=== PATIENT | male | born 1940 | race Caucasian/White ===

== ENCOUNTER 2019-09-27 07:44 | Day surgery (SDC) | payer MEDICARE ==
[~2019-09-27] VITALS: Ht 175.3 cm; Wt 112.0 kg
[2019-09-27] VITALS (7 sets, daily range): BP systolic 106–132; BP diastolic 62–78; PULSE 54–93; TEMP 97.6–98.2
[2019-09-27] MEDS ORDERED: ZYLOPRIM 300MG300 MG PO (08:33)
[2019-09-27] MEDS ORDERED: CELEBREX 1100 MG/CAP PO (08:33)
[2019-09-27] MEDS ORDERED: FLEXERIL5 MG PO (08:34)
[2019-09-27] MEDS ORDERED: FISH OIL 1000MG1 CAP PO (08:35)
[2019-09-27] MEDS ORDERED: LASIX 20MG TABL20 MG PO (08:36)
[2019-09-27] MEDS ORDERED: PRINZIDE 12.5 M1 TA1 PO (08:36)
[2019-09-27] MEDS ORDERED: FLOMAX 0.40.4 MG/CAP PO (08:38)
[2019-09-27] MEDS ORDERED: LOPRESSOR 225 MG/TAB PO (08:38)
[2019-09-27] MEDS ORDERED: VITAMIN D 400400 IU PO (08:40)
[2019-09-27] MEDS ORDERED: VITAMIN A10k PO (08:41)
[2019-09-27] MEDS ORDERED: ASPIRIN 32325 MG/TAB PO (08:42)
[2019-09-27] MEDS ORDERED: VITAMIN A & D PO (08:45)
--- NOTE | 2019-09-27 08:47 | NUR ---
TO RM AT 0754- CALL LIGHT IN REACH AT BEDSIDE.
--- NOTE | 2019-09-27 11:30 | NUR ---
RECEIVED 2ND CUP OF WATER
--- NOTE | 2019-09-27 11:50 | NUR ---
TO RM 2 PER CART FROM PACU. ALERT ORIENTED X3, TALKING TO STAFF AND . VARGAS CATH PATENT WITH LIGHT YELLOW URINE. DENIES PAIN OR DISCOMFORT. DENIES NAUSEA OR VOMITING. DR YU STATED TO CLAMP VARGAS . GIVE A 200CC BOLUS OF FLUIDS WHICH ARE HANGING (LR) AND THEN PULL VARGAS. PATIENT WILL NEED TO VOID PRIOR TO LEAVING. RECEIVED CUP OF WATER.
--- NOTE | 2019-09-27 12:00 | NUR ---
DISCONTINUED VARGAS BAG. PATIENT AMBULATED TO BATHROOM VOIDED AND AMBULATED BACK TO BED DISCONTINUED IV AND INT- CATHETER INTACT.
--- NOTE | 2019-09-27 12:20 | NUR ---
RECEIVED DISCHARGE INSTRUCTIONS AND VERBALIZED UNDERSTANDING. INSTRUCTED PATIENT TO CALL OFFICE OR GOT TO THE ER IF UNABLE TO VOID.
--- NOTE | 2019-09-27 12:30 | NUR ---
DISCHARGED PER WC BY NURSING STAFF TO PRIVATE CAR IN CARE OF [facility].
== END 2019-09-27 12:35 | disposition home or self-care (01) ==
LOC: SDCO 07:44
DX: N32.0 Bladder-neck obstruction (principal); I48.91 Unspecified atrial fibrillation; F32.9 Major depressive disorder, single episode, unspecified; M10.9 Gout, unspecified; I10 Essential (primary) hypertension; M19.90 Unspecified osteoarthritis, unspecified site; Z85.46 Personal history of malignant neoplasm of prostate; Z87.11 Personal history of peptic ulcer disease; Z82.49 Family history of ischemic heart disease and other diseases of the circulatory system
CPT/HCPCS: J0690; J1100; J2405; J2704; J3010; J3301; J7120

== ENCOUNTER 2022-04-05 09:14 | Inpatient (IN) | payer MEDICARE ==
[~2022-04-05] VITALS: Ht 175.3 cm; Wt 104.6 kg
[2022-04-05] VITALS (348 sets, daily range): BP systolic 102–131; BP diastolic 55–91; PULSE 73–91; TEMP 97.6–98.5; O2SAT 70–100
[~2022-04-05 09:14] MED LIST: ASPIRIN 32325 MG/TAB PO; CELEBREX 1100 MG/CAP PO; FISH OIL 1000MG1 CAP PO; FLEXERIL5 MG PO; FLOMAX 0.40.4 MG/CAP PO; LASIX 20MG TABL20 MG PO; LOPRESSOR 225 MG/TAB PO; PRINZIDE 12.5 M1 TA1 PO; VITAMIN A & D PO; VITAMIN A10k PO; VITAMIN D 400400 IU PO; ZYLOPRIM 300MG300 MG PO
[2022-04-05 10:12] LABS: BASO # 0.1 K/mm3 (0.0-0.2); BASO % 0.7 % (0.0-2.0); EOS # 0.1 K/mm3 (0.0-0.7); EOS % 0.9 % (0.0-4.0); GRAN # 4.9 K/mm3 (1.4-6.5); GRAN % 64.2 % (42.2-75.2); HEMATOCRIT 49.5 % (42.0-52.0); HEMOGLOBIN 17.2 g/dl (13.5-18.0); LYMPH # 1.9 K/mm3 (1.2-3.4); LYMPH % 24.5 % (20.0-51.0); MEAN CELL VOLUME 88 fl (80.0-100.0); MEAN CORPUSCULAR HEMOGLOBIN 31 pg (27-31); MEAN CORPUSCULAR HGB CONC 35 g/dl (33.0-37.0); MEAN PLATELET VOLUME 10.4 fl (7.4-10.4); MONO # 0.7 K/mm3 (0.1-0.6); PLATELET COUNT 271 K/mm3 (130-400); RED BLOOD COUNT 5.61 M/mm3 (4.20-5.60); REDCELL DISTRIBUTION WIDTH-CV 13.4 % (11.5-14.5)
[2022-04-05 10:33] LABS: ALBUMIN 3.8 gm/dL (3.4-4.8); BILIRUBIN,TOTAL 0.9 mg/dL (0.2-1.2); CALCIUM 9.5 mg/dL (8.4-10.2); CREATININE, serum 1.06 mg/dL (0.72-1.25); POTASSIUM 3.4 mmol/L (3.5-4.5); TOTAL PROTEIN 7.6 gm/dL (6.2-8.1)
[2022-04-05 11:11] LABS: INR 1.1 (0.8-3.0); PROTHROMBIN TIME 12.1 SECONDS (9.7-12.8)
[2022-04-05 11:14] LABS: PARTIAL THROMBOPLASTIN TIME 28.5 SECONDS (26.0-37.0)
[2022-04-05] MEDS ORDERED: PAXLOVID CO-PA1 EACH PO (12:45)
[2022-04-05 12:54] LABS: COLLECTION METHOD CLEAN CATCH
[2022-04-05 13:03] LABS: MUCOUS Present (NOT PRESENT); PH 7 (5-8); SQUAMOUS EPITHELIAL 0-2 /hpf (0-10); URINE APPEARANCE Clear (CLEAR/HAZY); URINE BACTERIA None Seen /hpf (NONE SEEN); URINE BLOOD 1+ (NEGATIVE); URINE COLOR Yellow (YELLOW); URINE GLUCOSE Negative (NEGATIVE); URINE KETONE Negative (NEGATIVE); URINE NITRATE Negative (NEGATIVE); URINE PROTEIN(semi-quant) Negative (NEGATIVE); URINE RBC 0-2 /hpf (0-2); URINE UROBILINOGEN Negative (NEGATIVE)
--- NOTE | 2022-04-05 14:50 | NUR ---
PT TRANSFERRED TO ICU FROM ED. PT ABLE TO TRANSFER FROM ED COT TO ICU BED. PT ASSESSMENT COMPLETED. VSS. HEPARIN DRIP VERIFIED. PT PLACED ON ICU MONITORING. PT EDUCATED ON HOW TO USE CALL LIGHT. PT VERBALIZED UNDERSTANDING. CALL LIGHT WITHIN REACH.
[2022-04-05] MEDS ORDERED: FLEXERIL5 MG PO (22:55)
[2022-04-06 04:04] VITALS: BP 128/59; PULSE 80; TEMP 98.4
[2022-04-06 04:07] LABS: BASO % 0.3 % (0.0-2.0); EOS # 0.1 K/mm3 (0.0-0.7); EOS % 1.4 % (0.0-4.0); GRAN # 3.3 K/mm3 (1.4-6.5); GRAN % 50.2 % (42.2-75.2); HEMATOCRIT 43.2 % (42.0-52.0); LYMPH # 2.4 K/mm3 (1.2-3.4); MEAN CELL VOLUME 90 fl (80.0-100.0); MEAN CORPUSCULAR HEMOGLOBIN 30 pg (27-31); MEAN CORPUSCULAR HGB CONC 34 g/dl (33.0-37.0); MEAN PLATELET VOLUME 10.9 fl (7.4-10.4); MONO # 0.8 K/mm3 (0.1-0.6); MONO % 11.5 % (1.7-9.3); PLATELET COUNT 219 K/mm3 (130-400); REDCELL DISTRIBUTION WIDTH-CV 13.4 % (11.5-14.5)
[2022-04-06 04:17] LABS: HEMOGLOBIN 14.6 g/dl (13.5-18.0)
[2022-04-06 04:24] LABS: CALCIUM 8.1 mg/dL (8.4-10.2); CREATININE, serum 0.79 mg/dL (0.72-1.25); MAGNESIUM 1.6 mg/dL (1.6-2.6); PHOSPHOROUS 2.5 mg/dL (2.3-4.7); POTASSIUM 3.7 mmol/L (3.5-4.5)
--- NOTE | 2022-04-06 04:50 | NUR ---
HEPXA OF 0.97, HEPARIN GTT STOPPED X1 HOUR PER PROTOCOL AND THEN WILL BE AT A DECREASED RATE. SEE MAR.
--- NOTE | 2022-04-06 09:09 | NUR ---
The patient is COVID positive. SW contacted the patient's , Vale (ph#[phone]), to discuss discharge plan. The patient lives in [place] with his . Vale reports that the patient is indepedent with ADLs and has a cane and walker available, if needed. The patient's PCP is Dr. Antonio Olivares and he receives his medications from [facility]. Vale states that the patient does not have a DPOA-HC. His legal next of kin is his . Vale reports that the plan is for the patient to return back home with her upon discharge. No additional needs at this time. *Discharge plan: home with *
--- NOTE | 2022-04-06 09:34 | NUR ---
Patient alert and oriented, no complaints of pain. Heparin gtt running at 14 units/hr. Recheck HepXa at 0900. Patient 1 Assist to bathroom. +1 edema in bilateral lower extremities. Lungs clear. Call light in reach. Potassium at 3.7, will replace today.
[2022-04-06] MEDS ORDERED: DOXYCYCLINE 10100 MG PO (11:53)
[2022-04-06] MEDS ORDERED: TOPROL XL 25MG25 MG PO (11:54)
[2022-04-06] MEDS ORDERED: ASPIRIN E.C. 8181 MG PO (11:55)
[2022-04-06] MEDS ORDERED: ELIQUIS 5MG PO (11:56)
[2022-04-06 12:53] VITALS: BP 130/86; PULSE 95
--- NOTE | 2022-04-06 14:42 | NUR ---
Patient IV discontinued and removed. Tele removed. Patient chose to level electrodes on until showering at home for ease of removal on hair. Patient dressed self. Discharge instructions given with verbal understanding repeated. Patient wheeled down to ER dropoff. Instructions given to patient as well.
== END 2022-04-06 14:20 | disposition home or self-care (01) | DRG 177 ==
LOC: COL.ER 09:14 → MEDICAL 11:44 → ICU 11:44 → MEDICAL 22:20
PROVIDERS: Family Medicine; ADMIT Internal Medicine
DX: U07.1 COVID-19 (principal); J12.82 Pneumonia due to coronavirus disease 2019; I48.20 Chronic atrial fibrillation, unspecified; N17.9 Acute kidney failure, unspecified; I10 Essential (primary) hypertension; M54.9 Dorsalgia, unspecified; I95.9 Hypotension, unspecified; I27.20 Pulmonary hypertension, unspecified; M10.9 Gout, unspecified; K27.9 Peptic ulcer, site unspecified, unspecified as acute or chronic, without hemorrhage or perforation; M19.90 Unspecified osteoarthritis, unspecified site; E87.6 Hypokalemia; N40.0 Benign prostatic hyperplasia without lower urinary tract symptoms; E86.0 Dehydration; Z79.82 Long term (current) use of aspirin; Z85.46 Personal history of malignant neoplasm of prostate; Z72.89 Other problems related to lifestyle; Z23 Encounter for immunization
CPT/HCPCS: J0696; J1644; J3475; J7030; Q9967

== ENCOUNTER 2022-04-20 17:36 | Inpatient (IN) | payer MEDICARE ==
[~2022-04-20] VITALS: Ht 175.3 cm; Wt 100.2 kg
[~2022-04-20 17:36] MED LIST changes: +ASPIRIN E.C. 8181 MG PO; +DOXYCYCLINE 10100 MG PO; +ELIQUIS 5MG PO; +PAXLOVID CO-PA1 EACH PO; +TOPROL XL 25MG25 MG PO
[2022-04-20 18:29] LABS: BASO # 0.1 K/mm3 (0.0-0.2); BASO % 0.4 % (0.0-2.0); EOS # 0.1 K/mm3 (0.0-0.7); EOS % 0.4 % (0.0-4.0); GRAN # 18.9 K/mm3 (1.4-6.5); GRAN % 86.9 % (42.2-75.2); HEMATOCRIT 46.3 % (42.0-52.0); HEMOGLOBIN 15.4 g/dl (13.5-18.0); LYMPH # 1.7 K/mm3 (1.2-3.4); LYMPH % 7.7 % (20.0-51.0); MEAN CELL VOLUME 91 fl (80.0-100.0); MEAN CORPUSCULAR HEMOGLOBIN 30 pg (27-31); MEAN CORPUSCULAR HGB CONC 33 g/dl (33.0-37.0); MEAN PLATELET VOLUME 10.3 fl (7.4-10.4); MONO # 0.9 K/mm3 (0.1-0.6); MONO % 4.2 % (1.7-9.3); PLATELET COUNT 298 K/mm3 (130-400); REDCELL DISTRIBUTION WIDTH-CV 13.3 % (11.5-14.5)
[2022-04-20 18:41] LABS: ALBUMIN 3.6 gm/dL (3.4-4.8); BILIRUBIN,TOTAL 1.3 mg/dL (0.2-1.2); CALCIUM 9.3 mg/dL (8.4-10.2); CREATININE, serum 0.98 mg/dL (0.72-1.25); POTASSIUM 4.1 mmol/L (3.5-4.5); TOTAL PROTEIN 7.4 gm/dL (6.2-8.1)
[2022-04-20 18:47] LABS: TROPONIN-I 0.026 ng/mL (0.00-0.033)
[2022-04-20] MEDS ORDERED: relief factor PO (21:18)
[2022-04-20] MEDS ORDERED: TOPROL XL 25MG25 MG PO (21:20)
[2022-04-20] MEDS ORDERED: LASIX 20MG TABL20 MG PO (21:22)
[2022-04-20 22:52] LABS: INR 1.4 (0.8-3.0); PROTHROMBIN TIME 16.2 SECONDS (9.7-12.8)
[2022-04-20 22:55] LABS: PARTIAL THROMBOPLASTIN TIME 33.7 SECONDS (26.0-37.0)
[2022-04-20 23:40] VITALS: BP 116/76; PULSE 112; TEMP 97.8
[2022-04-21 04:51] VITALS: BP 121/94; PULSE 76; TEMP 98
[2022-04-21 07:16] VITALS: BP 120/84; PULSE 89; TEMP 97.7
[2022-04-21 07:41] LABS: BASO # 0.1 K/mm3 (0.0-0.2); BASO % 0.5 % (0.0-2.0); EOS # 0.1 K/mm3 (0.0-0.7); EOS % 1.1 % (0.0-4.0); HEMATOCRIT 41.9 % (42.0-52.0); HEMOGLOBIN 13.8 g/dl (13.5-18.0); LYMPH % 20.4 % (20.0-51.0); MEAN CELL VOLUME 91 fl (80.0-100.0); MEAN CORPUSCULAR HEMOGLOBIN 30 pg (27-31); MEAN CORPUSCULAR HGB CONC 33 g/dl (33.0-37.0); MEAN PLATELET VOLUME 10.5 fl (7.4-10.4); MONO # 0.7 K/mm3 (0.1-0.6); MONO % 6.7 % (1.7-9.3); PLATELET COUNT 248 K/mm3 (130-400); RED BLOOD COUNT 4.63 M/mm3 (4.20-5.60); REDCELL DISTRIBUTION WIDTH-CV 13.6 % (11.5-14.5)
--- NOTE | 2022-04-21 07:41 | NUR ---
Patient alert and oriented, no complaints of pain. 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 Heparin gtt at 19.5ml/hr in the R forearm. Zosyn at 25ml/hr in R AC. Patient resting in bed comfortably.
[2022-04-21 07:57] LABS: CALCIUM 8.8 mg/dL (8.4-10.2); CREATININE, serum 0.91 mg/dL (0.72-1.25)
[2022-04-21 08:07] LABS: TROPONIN-I 0.06 ng/mL (0.00-0.033)
--- NOTE | 2022-04-21 10:31 | NUR ---
Initial visit; Patient thanked Pediatric Urologist for offering prayer and God's blessings. Pediatric Urologist will keep patient in her prayers.
[2022-04-21 11:28] VITALS: BP 135/89; PULSE 103; TEMP 97.9
[2022-04-21 16:08] VITALS: BP 115/82; PULSE 69; TEMP 97.4
--- NOTE | 2022-04-21 16:56 | NUR ---
Patient has been resting comfortably in room for the day. Independent at bedside for urinal use., Strict I&O monitoring in place. Heparin gtt running, recheck at 1700. No complaints of pain. No complaints of difficulty breathing or shortness of breath. Patient has had uneventful day, NPO at midnight for stress test tomorrow with interventions planned tomorrow based off of stress test results.
[2022-04-21 19:35] VITALS: BP 105/83; PULSE 100; TEMP 98.7
--- NOTE | 2022-04-21 21:03 | NUR ---
Patient assessed around 193. Denies having pain and discomfort. Restarted Heparin drip at 1915 per ordres. Recheck PTT at 0115. Telemetry in place: A-fib. Denies having any questions, needs, or concerns at this time. Patient aware of plan for lexiscan tomorrow. In bed with call light within reach.
[2022-04-21 23:26] VITALS: BP 94/76; PULSE 75; TEMP 97.9
[2022-04-22] VITALS (13 sets, daily range): BP systolic 90–138; BP diastolic 47–88; PULSE 68–100; TEMP 97.5–98.8
--- NOTE | 2022-04-22 05:45 | NUR ---
Patient continues on Heparin drip per orders. Recheck PTT at 0750 per protocol. Denies having pain and discomfort at this shift. Did not give Nitro paste during the night due to low BP and denies having chest pain and discomfort. In bed with call light within reach. Remains in A-fib on telemetry. Has been NPO since midnight for [employer] today.
[2022-04-22 08:07] LABS: BASO # 0.1 K/mm3 (0.0-0.2); BASO % 0.7 % (0.0-2.0); EOS # 0.2 K/mm3 (0.0-0.7); EOS % 2.9 % (0.0-4.0); GRAN # 4.2 K/mm3 (1.4-6.5); GRAN % 56.7 % (42.2-75.2); HEMATOCRIT 43.1 % (42.0-52.0); HEMOGLOBIN 14.5 g/dl (13.5-18.0); LYMPH # 2.2 K/mm3 (1.2-3.4); MEAN CELL VOLUME 90 fl (80.0-100.0); MEAN CORPUSCULAR HEMOGLOBIN 30 pg (27-31); MEAN CORPUSCULAR HGB CONC 34 g/dl (33.0-37.0); MEAN PLATELET VOLUME 10.3 fl (7.4-10.4); MONO # 0.7 K/mm3 (0.1-0.6); MONO % 9.3 % (1.7-9.3); PLATELET COUNT 248 K/mm3 (130-400); RED BLOOD COUNT 4.77 M/mm3 (4.20-5.60); REDCELL DISTRIBUTION WIDTH-CV 13.6 % (11.5-14.5)
[2022-04-22 08:20] LABS: CREATININE, serum 0.89 mg/dL (0.72-1.25); MAGNESIUM 1.9 mg/dL (1.6-2.6); POTASSIUM 3.6 mmol/L (3.5-4.5)
--- NOTE | 2022-04-22 16:11 | NUR ---
SW met with patient to complete intake and discuss discharge plan. Patient reports that he lives at home with his Janine ([phone]). Patient reports that he is mostly independent with his ADL's but that his does help at times. He does not utilize any DME to assist with mobility. Patient has no home oxygen needs. PCP is and he utilizes [facility] for prescriptions. Patient is planning on returning home once medically ready. Discharge plan: Home
--- NOTE | 2022-04-22 18:00 | NUR ---
Patient had an ok day. Shift assessment completed. Scheduled medications given. VSS. Patient A&O. LINDSEY and Cardioversion completed. Post op vitals completed. Patient denies any pain, discomfort, or further needs at this time. Call light in reach.
--- NOTE | 2022-04-22 19:22 | NUR ---
TX GIVEN VIA MOUTHPIECE, TOLERATED WELL.
--- NOTE | 2022-04-22 19:35 | NUR ---
PATIENT RESTING IN BED WATCHING TELEVISION AT THIS TIME. PATIENT JOSE NEEDS OR CONCERNS AT THIS TIME. CALL LIGHT IS WITHIN PATIENT REACH AND PATIENT ENCOURAGED TO CALL WITH ANY NEEDS OR CONCERNS. PATIENT EXPRESSES APPRECIATION FOR VISIT.
[2022-04-23] VITALS (7 sets, daily range): BP systolic 116–151; BP diastolic 59–79; PULSE 54–62; TEMP 97.3–98.4
--- NOTE | 2022-04-23 05:51 | NUR ---
Patient has had an uneventful night and has remained sinus bernabe on tele. Patient is in bed with eyes closed. Patient has no signs or symptoms of any issues or concerns. Call light is within reach of patient.
[2022-04-23 06:08] LABS: BASO % 0.6 % (0.0-2.0); EOS # 0.3 K/mm3 (0.0-0.7); EOS % 3.5 % (0.0-4.0); GRAN % 56.9 % (42.2-75.2); HEMATOCRIT 40.2 % (42.0-52.0); HEMOGLOBIN 13.4 g/dl (13.5-18.0); MEAN CELL VOLUME 91 fl (80.0-100.0); MEAN CORPUSCULAR HEMOGLOBIN 30 pg (27-31); MEAN CORPUSCULAR HGB CONC 33 g/dl (33.0-37.0); MEAN PLATELET VOLUME 10.8 fl (7.4-10.4); MONO # 0.8 K/mm3 (0.1-0.6); MONO % 10.7 % (1.7-9.3); PLATELET COUNT 235 K/mm3 (130-400); RED BLOOD COUNT 4.42 M/mm3 (4.20-5.60); REDCELL DISTRIBUTION WIDTH-CV 13.6 % (11.5-14.5)
[2022-04-23 06:27] LABS: CREATININE, serum 0.89 mg/dL (0.72-1.25); POTASSIUM 3.4 mmol/L (3.5-4.5)
--- NOTE | 2022-04-23 08:00 | NUR ---
Pt lying down in bed. VSS. A&O x4. Shift assessment completed. Complains of Headache, unable to describe and rate level of pain. Requests for medication. Provider notified. Tele on. Right INT forearm CDI. Right INT Antecubital CDI. No redness or edema. Denies any other disconfort or needs at the time besides Headache. Call light within reach.
--- NOTE | 2022-04-23 08:56 | NUR ---
IV medications given as ordered. Education on new initiation of magnesium replacement. All questions answered. Patient verbalized an understanding of the teaching.
--- NOTE | 2022-04-23 18:47 | NUR ---
Pt lying down in bed denies any needs or concerns at the time. He states that his Headache decreased a lot since this morning. Call light within reach.
--- NOTE | 2022-04-23 19:17 | NUR ---
PATIENT SITTING AT BEDSIDE IN RECLINER WITH FLUIDS INFUSING BY GRAVITY. FAMILY IS AT BEDSIDE. PATIENT INFORMS THIS NURSE OF DYE ALLERGIES. WILL DISCUSS WITH PHARMACY IF PT OWN MEDS CAN BE LABELED AND USED SINCE PT MEDS ARE SPECIAL ORDERED. PATIENT STATES AGREEMENT WITH PLAN. PATIENT JOSE PAIN, NEEDS OR CONCERNS. PATIENT HAS CALL LIGHT WITHIN REACH AND ENCOURAGED TO CALL WITH ANY NEEDS OR CONCERNS.
--- NOTE | 2022-04-23 19:21 | NUR ---
1830 PATIENT LAYING IN BED STATES HE HAS LOW ENERGY TODAY. PATIENT STATES HE ATE HIS DINNER AND IT WAS GOOD. PATIENT DENIES NEEDS OR CONCERNS AT THIS TIME BUT DOES STATE HE WOULD LIKE TO GO TO BE EARLY TONIGHT. THIS NURSE ADVISES SHE WILL BRING PATIENT MEDS SO HE MAY FALL ASLEEP WHEN DESIRED. CALL LIGHT IS WITHIN REACH OF PATIENT AND PATIENT ENCOURAGED TO CALL WITH ANY NEEDS OR CONCERNS.
--- NOTE | 2022-04-23 20:31 | NUR ---
Pt not available, he asked me to come back in a little while.
--- NOTE | 2022-04-23 20:52 | NUR ---
Tx given via mouthpiece, tolerated well.
[2022-04-24 04:18] VITALS: BP 136/70; PULSE 61; TEMP 98.5
--- NOTE | 2022-04-24 05:34 | NUR ---
PATIENT STATES HE HAS NOT SLEPT ALL NIGHT DUE TO ISSUES WITH TELE AND THIS NURSE HAVING TO COME CHECK WITH ISSUES. PATIENT REQUESTS AND RECEIVES TYLENOL FOR PAIN THAT HE RATES 4/10 IN HIS HEAD. PATIENT STATES THIS NURSE IS TOO MUCH LIKE HIS AND MUST LOVE PAYING THE ELECTRIC BILL AROUND HERE. PATIENT EDITA ANY ADDITIONAL NEEDS AT THIS TIME. PATIENT HAS CALL LIGHT WITHIN REACH AND IS ENCOURAGED TO CALL WITH ANY NEEDS OR CONCERNS. LAB COMES IN PATIENT ROOM NURSE IS LEAVING FOR MORNING BLOOD DRAW.
--- NOTE | 2022-04-24 06:50 | NUR ---
appears to be sleeping, bedside shift report received monika Martinez RN
[2022-04-24 06:52] LABS: CALCIUM 8.8 mg/dL (8.4-10.2); CREATININE, serum 0.95 mg/dL (0.72-1.25); POTASSIUM 3.5 mmol/L (3.5-4.5)
--- NOTE | 2022-04-24 07:45 | NUR ---
appears to be dozing, awakened and full assessment completed, see interventions for further info, c/o some left shoulder discomfort, denies needs, breakfast ordered
[2022-04-24 08:10] VITALS: BP 127/64; PULSE 67; TEMP 97.5
--- NOTE | 2022-04-24 09:25 | NUR ---
Dr Alejo in to see patient
--- NOTE | 2022-04-24 11:05 | NUR ---
in bed and appears to be dozing, eyes closed, resp quiet and easy
[2022-04-24] MEDS ORDERED: LASIX 40MG TABL40 MG PO (11:08)
[2022-04-24] MEDS ORDERED: K-DUR20 MEQ PO (11:09)
[2022-04-24] MEDS ORDERED: BETAPACE 120MG120 MG PO (11:10)
[2022-04-24 11:44] VITALS: BP 111/63; PULSE 51; TEMP 97.9
--- NOTE | 2022-04-24 12:49 | NUR ---
assisted to sitting up on side of bed to have lunch
--- NOTE | 2022-04-24 13:20 | NUR ---
Dr Carbajal in to see patient
--- NOTE | 2022-04-24 13:30 | NUR ---
assisted up and into shower,
--- NOTE | 2022-04-24 14:00 | NUR ---
discharge instructions given to patient and his , verbalizes understanding
--- NOTE | 2022-04-24 14:06 | NUR ---
discharged per WC
== END 2022-04-24 14:06 | disposition home or self-care (01) | DRG 280 ==
LOC: COL.ER 17:36 → MEDICAL 20:19
PROVIDERS: Internal Medicine; Nurse Practitioner Family; Physician Assistant; ADMIT Internal Medicine
PROC: 5A2204Z Restoration of Cardiac Rhythm, Single (ICD-10-PCS; principal; 2022-04-22)
PROC: B24BZZ4 Ultrasonography of Heart with Aorta, Transesophageal (ICD-10-PCS; 2022-04-22)
DX: I48.91 Unspecified atrial fibrillation (principal); I50.33 Acute on chronic diastolic (congestive) heart failure; I21.4 Non-ST elevation (NSTEMI) myocardial infarction; J18.9 Pneumonia, unspecified organism; R65.10 Systemic inflammatory response syndrome (SIRS) of non-infectious origin without acute organ dysfunction; J81.1 Chronic pulmonary edema; I95.9 Hypotension, unspecified; I11.0 Hypertensive heart disease with heart failure; M10.9 Gout, unspecified; E87.6 Hypokalemia; K27.9 Peptic ulcer, site unspecified, unspecified as acute or chronic, without hemorrhage or perforation; I34.0 Nonrheumatic mitral (valve) insufficiency; M19.90 Unspecified osteoarthritis, unspecified site; D72.829 Elevated white blood cell count, unspecified; G89.29 Other chronic pain; M54.9 Dorsalgia, unspecified; Z79.01 Long term (current) use of anticoagulants; Z79.82 Long term (current) use of aspirin; Z85.46 Personal history of malignant neoplasm of prostate; Z86.16 Personal history of COVID-19
CPT/HCPCS: A9500; J0456; J0696; J1644; J1940; J2543; J2704; J2785; J3475; J7050; Q9967

== ENCOUNTER 2023-01-11 16:28 | Emergency (ER) | payer MEDICARE ==
[~2023-01-11] VITALS: Ht 172.7 cm; Wt 109.1 kg
[~2023-01-11 16:28] MED LIST changes: +BETAPACE 120MG120 MG PO; +K-DUR20 MEQ PO; +LASIX 40MG TABL40 MG PO; +relief factor PO
[2023-01-11 16:33] VITALS: TEMP 97.8
[2023-01-11 16:56] LABS: COLLECTION METHOD CLEAN CATCH
[2023-01-11 17:16] LABS: BASO # 0.1 K/mm3 (0.0-0.2); BASO % 0.6 % (0.0-2.0); EOS # 0.2 K/mm3 (0.0-0.7); EOS % 1.9 % (0.0-4.0); GRAN # 5.3 K/mm3 (1.4-6.5); GRAN % 60.5 % (42.2-75.2); HEMATOCRIT 50.4 % (42.0-52.0); HEMOGLOBIN 16.9 g/dl (13.5-18.0); LYMPH # 2.4 K/mm3 (1.2-3.4); MEAN CELL VOLUME 92 fl (80.0-100.0); MEAN CORPUSCULAR HEMOGLOBIN 31 pg (27-31); MEAN CORPUSCULAR HGB CONC 34 g/dl (33.0-37.0); MONO # 0.9 K/mm3 (0.1-0.6); MONO % 9.7 % (1.7-9.3); PLATELET COUNT 203 K/mm3 (130-400); RED BLOOD COUNT 5.49 M/mm3 (4.20-5.60); REDCELL DISTRIBUTION WIDTH-CV 13.6 % (11.5-14.5)
[2023-01-11 17:20] LABS: URINE APPEARANCE Cloudy (CLEAR/HAZY); URINE BLOOD 2+ (NEGATIVE); URINE COLOR Red (YELLOW); URINE GLUCOSE Negative (NEGATIVE); URINE KETONE Negative (NEGATIVE); URINE NITRATE Negative (NEGATIVE); URINE PROTEIN(semi-quant) 2+ (NEGATIVE)
[2023-01-11 17:24] LABS: SQUAMOUS EPITHELIAL None Seen /hpf (0-10); URINE BACTERIA Moderate /hpf (NONE SEEN); URINE RBC >50 /hpf (0-2)
[2023-01-11 17:24] LABS: INR 1.2 (0.8-3.0); PROTHROMBIN TIME 13.3 SECONDS (9.7-12.8)
[2023-01-11 17:48] LABS: BILIRUBIN,TOTAL 0.8 mg/dL (0.2-1.2); C-REACTIVE PROTEIN 0.08 mg/dL (0.00-0.50); CALCIUM 9.2 mg/dL (8.4-10.2); CREATININE, serum 0.98 mg/dL (0.72-1.25); POTASSIUM 4.3 mmol/L (3.5-4.5); TOTAL PROTEIN 7.6 gm/dL (6.2-8.1)
[2023-01-11] MEDS ORDERED: CEFTIN500 MG PO (20:16)
[2023-01-11 20:26] VITALS: BP 101/74; PULSE 60
== END 2023-01-11 20:26 | disposition home or self-care (01) ==
LOC: COL.ER 16:28
PROVIDERS: Emergency Medicine
DX: N30.91 Cystitis, unspecified with hematuria (principal); I48.91 Unspecified atrial fibrillation; Z79.01 Long term (current) use of anticoagulants; Z86.16 Personal history of COVID-19
CPT/HCPCS: J0696; J1885; J2405; J7030; Q9967

== ENCOUNTER 2023-09-24 10:00 | Inpatient (IN) | payer MEDICARE ==
[~2023-09-24] VITALS: Ht 22.9 cm; Wt 109.0 kg
[~2023-09-24 10:00] MED LIST changes: +CEFTIN500 MG PO; +CEPHALEXIN500 M1 PO; +COLACE LIQUI10 MG/ML PO; +PYRIDIUM 100MG100 MG PO
[2023-09-24 10:25] LABS: BASO # 0.1 K/mm3 (0.0-0.2); BASO % 0.5 % (0.0-2.0); EOS # 0.1 K/mm3 (0.0-0.7); EOS % 1.2 % (0.0-4.0); GRAN # 7.1 K/mm3 (1.4-6.5); GRAN % 71.9 % (42.2-75.2); HEMATOCRIT 46.1 % (42.0-52.0); HEMOGLOBIN 15.3 g/dl (13.5-18.0); LYMPH # 1.8 K/mm3 (1.2-3.4); LYMPH % 17.8 % (20.0-51.0); MEAN CELL VOLUME 91 fl (80.0-100.0); MEAN CORPUSCULAR HEMOGLOBIN 30 pg (27-31); MEAN CORPUSCULAR HGB CONC 33 g/dl (33.0-37.0); MEAN PLATELET VOLUME 11.3 fl (7.4-10.4); MONO # 0.8 K/mm3 (0.1-0.6); MONO % 8.2 % (1.7-9.3); PLATELET COUNT 202 K/mm3 (130-400); RED BLOOD COUNT 5.08 M/mm3 (4.20-5.60); REDCELL DISTRIBUTION WIDTH-CV 13.9 % (11.5-14.5)
[2023-09-24 10:33] LABS: INR 1.2 (0.8-3.0); PROTHROMBIN TIME 13.6 SECONDS (9.7-12.8)
[2023-09-24 10:36] LABS: PARTIAL THROMBOPLASTIN TIME 32.9 SECONDS (26.0-37.0)
[2023-09-24 10:44] LABS: ALANINE AMINOTRANSFERASE 18 U/L (0-55); ALKALINE PHOSPHATASE 97 U/L (40-150); ANION GAP 13 mmol/L (7-16); AST,SGOT 20 U/L (5-34); BILIRUBIN,TOTAL 0.8 mg/dL (0.2-1.2); BLOOD UREA NITROGEN 17 mg/dL (8-26); CARBON DIOXIDE 23 mmol/L (23-31); CHLORIDE 104 mmol/L (98-107); CREATININE, serum 0.87 mg/dL (0.72-1.25); GLUCOSE 96 mg/dL (70-99); LIPASE < 7 U/L (8-78); POTASSIUM 4.2 mmol/L (3.5-4.5); SODIUM 140 mmol/L (136-145); TOTAL PROTEIN 7.4 gm/dL (6.2-8.1)
[2023-09-24 10:51] LABS: TROPONIN-I 0.042 ng/mL (0.00-0.033)
[2023-09-24] MEDS ORDERED: fentaNYL 50 MCG/ML 2 ML VIAL IV ONE (11:00)
[2023-09-24 11:03] LABS: COLLECTION METHOD CATHETER
[2023-09-24 11:22] LABS: PH 5.5 (5.0-8.5); URINE APPEARANCE Clear (CLEAR/HAZY); URINE BLOOD TRACE-INTACT (NEGATIVE); URINE COLOR Yellow (YELLOW); URINE GLUCOSE Negative (NEGATIVE); URINE KETONE Negative (NEGATIVE); URINE NITRATE Negative (NEGATIVE); URINE PROTEIN(semi-quant) Negative (NEGATIVE); URINE RBC None Seen /hpf (0-2); URINE UROBILINOGEN 0.2 E.U/dL (0.2-1.0)
[2023-09-24] MEDS ORDERED: ELIQUIS 5MG PO (11:48)
[2023-09-24 12:28] VITALS: BP 173/105; PULSE 68; TEMP 97.4
[2023-09-24] MEDS ORDERED: Morphine 4 MG/ML VIAL IV PRN (12:45)
[2023-09-24] MEDS ORDERED: Acetaminophen 500 MG TAB PO SCH (12:45)
[2023-09-24] MEDS ORDERED: oxyCODONE 5 MG TAB PO PRN (12:45)
[2023-09-24] MEDS ORDERED: Cyclobenzaprine 10 MG TAB PO SCH (14:00)
[2023-09-24 15:38] VITALS: BP 147/76; PULSE 62; TEMP 97.9
[2023-09-24 19:08] VITALS: BP_SYST 147
--- NOTE | 2023-09-24 19:30 | NUR ---
Assessment complete. A&Ox4. Denies shortnss of breath/nausea. Rating pain 10/10 on lama scale to back-described as sharp intermittent jabs with a constant ache. States he cant even move in the bed or sit up to eat dinner. Morphine/oxycodone given per dr fields. Tele reporting SR. Currently on O2@1.5L/NC with adequate saturation. Patient refusing gilman cath but states he can use the urinal without difficulty. States he doesnt even feel hungry and just wants to rest. Plan of care discussed for this shift to include meds/pain control/calling for questions/concerns. Verbalizes understanding. Call light in each. Will monitor.
[2023-09-24 19:44] VITALS: BP 167/81; PULSE 68; TEMP 98.2
--- NOTE | 2023-09-24 20:13 | NUR ---
Patient resting eyes closed. NO s/s of pain or discomfort post oxycodone/morphine.
[2023-09-24] MEDS ORDERED: Apixaban 5 MG TAB PO SCH (21:00)
[2023-09-24 22:55] VITALS: BP 150/83; PULSE 53; TEMP 97.8
[2023-09-25] VITALS (13 sets, daily range): BP systolic 116–151; BP diastolic 58–77; PULSE 56–65; TEMP 97.9–98.8
--- NOTE | 2023-09-25 00:30 | NUR ---
Paient resting eyes closed. No s/s of pain or discomfort noted. Will monitor.
--- NOTE | 2023-09-25 02:15 | NUR ---
Patient called c/o muscle spasms to back. Rating pain 6/10 on pain scale. Oxycodone given per dr order. Will monitor.
--- NOTE | 2023-09-25 04:57 | NUR ---
Patient called with c/o pain to back-rating pain 7/10 on pain scale-described as intermittent muscle spasms. Tylenol/morphine given per dr order. Will monitor.
--- NOTE | 2023-09-25 06:17 | NUR ---
Patient rested off an on this shift. Recieved several doses of oxycodone/morphine for back spasms. Flexeril did help the most earlier in shift. Describes pain as intermittent sharp cramps/spasms. VS remained stable with slightly elevated blood pressures. TELE reported SR. On o2@1.5L/NC. IV to right forearm flushed well. Denies current needs. Call light in reach. Will monitor.
--- NOTE | 2023-09-25 06:58 | NUR ---
Bedside report given to DELVIS Vigil.
[2023-09-25 07:18] LABS: CALCIUM 8.7 mg/dL (8.4-10.2); CREATININE, serum 1.04 mg/dL (0.72-1.25); MAGNESIUM 1.9 mg/dL (1.6-2.6); POTASSIUM 4.3 mmol/L (3.5-4.5)
[2023-09-25 07:27] LABS: TROPONIN-I 0.04 ng/mL (0.00-0.033)
--- NOTE | 2023-09-25 07:47 | NUR ---
Critical troponin value called to Dr. Alejo- no new orders rec'd.
[2023-09-25] MEDS ORDERED: Furosemide 80 MG TAB PO SCH (09:00)
[2023-09-25] MEDS ORDERED: Allopurinol 300 MG TAB PO SCH (09:00)
[2023-09-25] MEDS ORDERED: LASIX 40MG TABL40 MG PO (09:04)
[2023-09-25] MEDS ORDERED: K-DUR20 MEQ PO (09:04)
[2023-09-25] MEDS ORDERED: BETAPACE 120MG120 MG PO (09:05)
--- NOTE | 2023-09-25 10:30 | NUR ---
Initial visit; Patient doing well and thanked Squaring Shear Operator for looking in on him and visiting, offering God's blessings and prayer for healing.
--- NOTE | 2023-09-25 14:29 | NUR ---
PATIENT WAS SEEN BY PHYSICAL THERAPY AND SOME BLISTERS WERE SEEN ON THE RIGHT SIDE OF HIS BACK.1 BLISTERED POPPED. PATIENT WAS ASKED IF HE HAD PREVIOUSLY HAD A HEATING PAD AND HE EXPRESSED THAT POSSIBLY HIS HAD PUT ONE ON HIM.
--- NOTE | 2023-09-25 15:19 | NUR ---
lime kiln worker helper met with pt to complete discharge planning. Pt reports he lives in [place] with his , Vale [phone]. Pt reports he sees Dr. Olivares and obtains medications from [facility] or [facility]. He has no issues affording his medications. He does not have a DPOA-HC on file. Pt is independent with ADLS and uses no DME. Pt was provided Medicare.gov list of HH options to discuss with his . Pt said he will discuss with his and decide. Discharge Plan: [facility]
--- NOTE | 2023-09-25 19:20 | NUR ---
Assessment complet. A&Ox4. Denies shortness of breath/nausea. States he still is having muscle spasms to back intermittently. States so far the pain medications given have been helping. Did sit up in bed to eat dinner tonight. TELE reporting SR. Report received that PT noted patient has several small blisters to back-patient states he can not move enough for this nurse to see areas. Will try to reassess later when patient is more comfortable. Currently on RA. VS stable. Using urinal without difficulty. IV to right forearm flushes without difficulty. Plan of care discussed for this shift to include meds/pain control/repositioning/calling for questions/concerns. Verbalizes understanding. Call light in reach. Will monitor.
--- NOTE | 2023-09-25 20:28 | NUR ---
Patient c/o pain to back-described as intermittent muscle spasms-rating pain 10/10. Oxycodone and tylenol given per dr order. Will monitor.
[2023-09-26] VITALS (11 sets, daily range): BP systolic 125–164; BP diastolic 65–84; PULSE 56–69; TEMP 97.6–98
--- NOTE | 2023-09-26 00:21 | NUR ---
Patient resting eyes closed. No s/s of pain noted.
--- NOTE | 2023-09-26 02:47 | NUR ---
Patient called with c/o pain to back pain-rating pain 6/10 on pain scale-described as spasms. Oxycodone given per dr fields.
[2023-09-26 08:31] LABS: BASO % 0.4 % (0.0-2.0); EOS # 0.3 K/mm3 (0.0-0.7); EOS % 3.8 % (0.0-4.0); GRAN # 4.4 K/mm3 (1.4-6.5); GRAN % 62.6 % (42.2-75.2); HEMATOCRIT 43.3 % (42.0-52.0); HEMOGLOBIN 14.2 g/dl (13.5-18.0); LYMPH # 1.6 K/mm3 (1.2-3.4); LYMPH % 22.6 % (20.0-51.0); MEAN CELL VOLUME 92 fl (80.0-100.0); MEAN CORPUSCULAR HEMOGLOBIN 30 pg (27-31); MEAN CORPUSCULAR HGB CONC 33 g/dl (33.0-37.0); MEAN PLATELET VOLUME 11.2 fl (7.4-10.4); MONO # 0.7 K/mm3 (0.1-0.6); MONO % 10.3 % (1.7-9.3); PLATELET COUNT 166 K/mm3 (130-400); RED BLOOD COUNT 4.73 M/mm3 (4.20-5.60)
[2023-09-26 08:43] LABS: CALCIUM 8.6 mg/dL (8.4-10.2); CREATININE, serum 0.9 mg/dL (0.72-1.25); POTASSIUM 3.8 mmol/L (3.5-4.5)
--- NOTE | 2023-09-26 13:36 | NUR ---
community development worker reviewed progress note and spoke with Dr. Alejo regarding discharge plan. felt as though pt needs SNF level of care. IVETTE met with pt and at bedside to discuss change in plans. SW provided Medicare. gov list of SNF locations. SW explained what SNF is and how it is reccomended by and could benefit pt. Patient was unsure and wanting to go home. reports, "Whatever he wants" when asked what her thoughts were. Pt inquired about what kind of beds they have. He reports if they are not hospital grade and cannot move; it would not be an option. SW said she would ask around. SW was given permission to put in Authorization for insurance purposes and pt can change his mind. Family would like to discuss and follow up with IVETTE. IVETTE spoke with [facility] and [facility] who confirm they have hospital grade beds. SW put in SNF authorization with [place] Access portal. Discharge Plan: TBD
--- NOTE | 2023-09-26 16:32 | NUR ---
IVETTE spoke with pt's daughter, Cierra [phone] who had questions regarding discharge planning. She reports her mother, Vale is having a hard time with his pain. IVETTE provided that SNF is the reccomendation and the pt only chose [facility]. She said she will speak with her brother and gather more insight from her family. She was informed pt can discharge tomorrow if accepted and authorization was put into insurance. She verbalized understanding. IVETTE recieved a call from , Vale and provided her with the update that [facility] is still reviewing and has not confirmed if they have beds. IVETTE spoke with [facility] who had further questions regarding medications, cancer treatments, and cancer Dr. IVETTE spoke with RN and Dr. Alejo to get information on this. Discharge Plan: [facility] Pending
--- NOTE | 2023-09-26 20:00 | NUR ---
UPON SHIFT ASSESSMENT, TOBI JOHNSON" WAS UP IN BED EATING DINNER TRAY. HE IS AXO X4 BUT CONTINUES TO COMPLAIN OF BACK PAIN 04/13. ABDOMEN IS QUITE DISTENDED AND FIRM, HOWEVER, HE DENIES PAIN AND BLADDER SCAN REVEAL MINIMAL URINE. I&O OUT PUT FOR 24HRS 1300ML. DALJIT DENIES CHEST PAIN OR SOA. TELE REMAINS NS. CALL LIGHT WITHIN REACH BED ALARM ON.
[2023-09-27] VITALS (7 sets, daily range): BP systolic 126–178; BP diastolic 72–84; PULSE 63–73; TEMP 98.2–98.7
--- NOTE | 2023-09-27 02:35 | NUR ---
CALL PLACED TO THE HOSPITALIST PATIENT'S BACK BLISTERS R/T A HOME HEATING PAD INCIDENT, DRAINING PURLENT FLUID-SCANT. VORB FOR SILVERDENE CREAM GIVEN.
--- NOTE | 2023-09-27 03:00 | NUR ---
ALERTED BY TELE. 8 SECOND WIDE RUN OF V TACH, SO FAR ONLY OCCURENCE. ASSESSED PATIENT-WAS ASLEEP AND AGITATED WHEN I AROUSE HIM. DENIES CHEST PAIN. VS WNL.
--- NOTE | 2023-09-27 03:48 | NUR ---
PER DAYSHIFT INSTRUCTIONS, ADJUSTED COMMODE TO ONE CLICK LOWER.
--- NOTE | 2023-09-27 04:21 | NUR ---
CALL PLACED TO HOSPITALIST, PATIENT'S BP WAS 178/84. ALSO INFORMED HOSPITALIST OF 8SEC RUN VTACH, AND DISTENDED ABDOMEN WITH EPIGASTRIC PAIN. TORB FOR HYDRALAZINE GIVEN.
[2023-09-27] MEDS ORDERED: hydrALAZINE 20 MG/ML 1 ML VIAL IV PRN (04:30)
--- NOTE | 2023-09-27 05:19 | NUR ---
REASSESSED BP -133/77-HYDRALAZINE EFFECTIVE
--- NOTE | 2023-09-27 07:19 | NUR ---
RECIEVED REPORT FROM DELVIS KAYE.
[2023-09-27] MEDS ORDERED: Polyethylene Glycol 3350 17 GM PDS PO SCH (09:00)
[2023-09-27] MEDS ORDERED: Docusate Sodium 100 MG CAP PO SCH (09:00)
[2023-09-27] MEDS ORDERED: Methylnaltrexone 12 MG/0.6 ML VIAL SQ SCH (09:00)
[2023-09-27] MEDS ORDERED: FLEXERIL 1010 MG/TAB PO (11:08)
[2023-09-27] MEDS ORDERED: TYLENOL 500MG500 MG PO (11:08)
[2023-09-27] MEDS ORDERED: COLACE 100100 MG/CAP PO (11:10)
[2023-09-27] MEDS ORDERED: SENNA-LAX8.6 MG PO (11:10)
[2023-09-27] MEDS ORDERED: MIRALAX PA17 GM/Dose PO (11:10)
[2023-09-27] MEDS ORDERED: SILVADENE CREAM1 TU TP (11:11)
[2023-09-27] MEDS ORDERED: ROXICODONE 55 MG/TAB PO (11:12)
[2023-09-27] MEDS ORDERED: LASIX 80MG TABL80 MG PO (11:13)
--- NOTE | 2023-09-27 11:17 | NUR ---
PT ALERT AND ORIENTED X4. IN A LOT OF PAIN RATED 9/10, MEDICATED PER EMAR. SHIFT ASSESSMENT COMPLETE. HAS A HARD TIME WITH REPOSITIONING R/T BACK SPASMS. WHEN ASKED ABOUT HOW HE FELL OR IF HE THINKS THE PAIN IS RELATED TO HIS FALL HE GETS ANGRY AND SAYS HE DOESN'T KNOW. HE ISNT ABLE TO SIT UP WITH OUT EXPERIANCING EXCRUCIATING PAIN. HIS BACK BLISTERS FROM HEATING PAD INCEDENT AT HOME ARE DRAINING, MEDICATED CREAM APPLIED PER EMAR. WASNT ABLE TO EAT MUCH BREAKFAST THIS AM BUT STATES HE DOESNT EAT BREAKFAST USUALLY. BEDDING CHANGED AND REPOSITIONED. CALL LIGHT WITHIN REACH, BED ALARM SET.
[2023-09-27] MEDS ORDERED: Morphine 4 MG/ML VIAL IV ONE (13:15)
--- NOTE | 2023-09-27 14:07 | NUR ---
PT DISCHARGED WITH EMS AT 1400. INT IV REMOVED. DISCHARGE PAPERWORK SENT WITH EMS.
--- NOTE | 2023-09-27 14:45 | NUR ---
floor service worker spring recieved questions from Alexa at [facility] throughout the day. [facility], [facility] declined referral due to belly distention, IV BP medications, and not having a bowel movement. IVETTE informed the family of the decline from [facility] and needing to choose another facilty. IVETTE was directed by Cierra merritt to speak with the son, Denilson [phone]. IVETTE spoke with Denilson and he had done research and chose [facility]. IVETTE advised pt can discharge today so we need a facility secured. The family was agreeable. IVETTE emailed a referral to [facility]. [facility] reports he can accept pt. IVETTE spoke with pt and DELVIS Woo and felt due to the severe pain, pt needs to go by EMS. IVETTE called [facility] and confirmed transport for 1:30pm. EMS documents completed. IVETTE had IVETTE Morales email discharge orders to [facility]. IVETTE completed IM from Medicare with pt. He verbalized understanding and signed. IVETTE provided copy and original in chart. Discharge Plan: [facility] 1:30pm
== END 2023-09-27 14:00 | disposition home or self-care (01) | DRG 551 ==
LOC: COL.ER 10:00 → MEDICAL 11:43
PROVIDERS: Emergency Medicine; Physician Assistant; ADMIT Internal Medicine
DX: M54.9 Dorsalgia, unspecified (principal); I21.A1 Myocardial infarction type 2; C61 Malignant neoplasm of prostate; I48.0 Paroxysmal atrial fibrillation; I10 Essential (primary) hypertension; I08.1 Rheumatic disorders of both mitral and tricuspid valves; M19.90 Unspecified osteoarthritis, unspecified site; T21.24XA Burn of second degree of lower back, initial encounter; R25.2 Cramp and spasm; W18.30XA Fall on same level, unspecified, initial encounter; X19.XXXA Contact with other heat and hot substances, initial encounter; Y92.009 Unspecified place in unspecified non-institutional (private) residence as the place of occurrence of the external cause; M10.9 Gout, unspecified; E66.9 Obesity, unspecified; Z79.01 Long term (current) use of anticoagulants; Z85.51 Personal history of malignant neoplasm of bladder; Z86.16 Personal history of COVID-19
CPT/HCPCS: J0360; J2212; J2270; J3010

== ENCOUNTER → 2023-11-02 | Outpatient (CLI) | payer MEDICARE ==
[~2023-11-02] MED LIST changes: +COLACE 100100 MG/CAP PO; +FLEXERIL 1010 MG/TAB PO; +Gadoterate 20 ML VIAL IV ONE; +LASIX 80MG TABL80 MG PO; +MIRALAX PA17 GM/Dose PO; +ROXICODONE 55 MG/TAB PO; +SENNA-LAX8.6 MG PO; +SILVADENE CREAM1 TU TP; +TYLENOL 500MG500 MG PO
== END ==
LOC: COL.RAD 10:15
DX: M51.16 Intervertebral disc disorders with radiculopathy, lumbar region (principal); M24.28 Disorder of ligament, vertebrae; M48.061 Spinal stenosis, lumbar region without neurogenic claudication; M51.17 Intervertebral disc disorders with radiculopathy, lumbosacral region
CPT/HCPCS: A9575

== ENCOUNTER → 2024-03-13 | Outpatient (CLI) | payer MEDICARE ==
[~2024-03-13] MED LIST changes: -Gadoterate 20 ML VIAL IV ONE
== END ==
LOC: MHCPAIN 10:50
DX: M47.816 Spondylosis without myelopathy or radiculopathy, lumbar region (principal); M48.061 Spinal stenosis, lumbar region without neurogenic claudication; G96.191 Perineural cyst
CPT/HCPCS: G0463